=== PATIENT | male | born 1945 | race Caucasian/White ===

== ENCOUNTER 2018-09-11 00:28 | Emergency (ER) | payer MEDICARE, BC, SELFPAY ==
--- NOTE | 2018-09-11 00:38 | NUR.NOTE ---
Nursing Note: pt had mohs today pt left from [facility] at 1700 with minimal bleeding over the course of the evening bleeding increased
[2018-09-11 00:39] VITALS: BP 169/83; PULSE 83; RESP 17; TEMP 36.8; O2SAT 98
--- NOTE | 2018-09-11 00:51 | W.ED.GENAD ---
Discharge Plan Disposition Patient Disposition: [facility] Condition: Stable Discharge Details Chief Complaint: GenMedical Clinical Impression: Post-op bleeding Primary Care Provider: Art Caicedo ED Provider: Ayo Abarca Home Meds and New Rx's Prescriptions: No Action doxycycline hyclate 100 mg tablet 100 mg PO BID Qty: 20 RF: 0 aspirin [Aspir-Low] 81 MG tablet,delayed release (DR/EC) 81 mg PO DAILY RF: 0 lovastatin 40 MG tablet 40 mg PO DAILY Qty: 90 RF: 4 Discharge Instructions Additional Instructions: Please go directly to the [facility] emergency department. He will be seen and assessed there. The on-call senior javascript engineer has assured me that your case will be discussed with the plastic surgery team prior to arrival. Please continue to apply pressure to your nose and all times. Medical Decision Making This is a 73-year-old male with no significant past medical history who presents today for evaluation of bleeding. 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 Surgery was earlier today, however this afternoon he began bleeding once he came home, the bleeding has continued. Exam demonstrates bleeding coming from the attached vessel. We did contact the Derm on-call physician discussed the case with him, Dr. Andre. Waiting on dermatology's final plan at this point. Unfortunately, currently pressure does not relieve the patient's bleeding. 1:23 AM The case is again been discussed with , and at this time he recommends that the patient be sent to [facility] emergency department where he can be seen and assessed there by plastics. Currently the patient is hemodynamically stable, patient will be sent by private vehicle to [facility] ED for further assessment. No indication clinically at this time for emergent transfer via ambulance. Vital signs remain notably reassuring and stable. Current bleeding level is tolerable. The case was discussed with the [facility] emergency physician Dr. Whatley the patient's situation, and symptoms as well as the plan per dermatology has been discussed with them. I have extensively reviewed the treatment plan and discharge instructions with the patient and their family. I have addressed all patient concerns at this time. The patient and family was made aware of what symptoms to monitor for that would warrant a return to the emergency department. Discussed the plan with the patient and family, they demonstrate verbal understanding and agreement with our assessment and plan at this time. HPI General Date/Time Provider Initiated Documentation: 09/11/18 00:29. HPI Narrative: This is a 73-year-old male with past medical history of basal cell carcinoma on his nose, for which she just had a Mohs procedure earlier today with a graft from the forehead to the tip of his nose including a vascular vein that was also transitioned down from the forehead to the nose with a tissue bridge in between. Surgery was completed earlier this afternoon. 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 He does take aspirin, but aside for this he denies any other blood thinners. He denies any significant pain, numbness, tingling, headache, or vision changes. Bleeding has been continuous. Patient has no other complaints at this time Related Data Home Medications Medication Instructions Recorded Confirmed aspirin [Aspir-Low] 81 mg PO DAILY tab-cap 09/09/13 09/11/18 lovastatin 40 mg PO DAILY #90 tab-cap 09/16/17 09/11/18 doxycycline hyclate 100 mg tablet 100 mg PO BID #20 tab 08/04/18 09/11/18 Previous Rx's Medication Instructions Recorded lovastatin 40 mg PO DAILY #90 tab-cap 09/16/17 doxycycline hyclate 100 mg tablet 100 mg PO BID #20 tab 08/04/18 Allergies Allergy/AdvReac Type Severity Reaction Status Date / Time No Known Allergies Allergy Unverified 09/11/18 00:43 General Stated Complaint: GenMedical VAUGHN: 3 Review of Systems Review of Systems All systems reviewed & are unremarkable except as noted in HPI and below PFSH Family History Mother No problems noted. Father No problems noted. Sister No problems noted. Brother No problems noted. Grandfather No problems noted. Grandfather Heart disease Grandmother No problems noted. Grandmother No problems noted. Sister No problems noted. Brother No problems noted. Brother No problems noted. Brother No problems noted. Brother No problems noted. Son No problems noted. Daughter No problems noted. Daughter No problems noted. Social History Smoking/Tobacco Use Status: Former Tobacco Use Alcohol Intake: never Drug use: Never Substance use type: does not use Do you feel safe at home: Yes Do you feel safe in your relationship?: Yes Exam Narrative Exam Narrative: 1.Const: Well-nourished, Well-developed, appearing stated age 2.Eyes: PERRL, no conjunctival injection, and symmetrical lids. 3.ENT: Nose demonstrates a well suture graft to the anterior aspect of the nose, does appear slightly pale, but not notably inconsistent from the other skin. Proximal to this is a grafted vessel, however due to adhesions and suturing I am unable to completely visualize. The bleeding seems to be coming from this area. No significant pain. Bleeding is certainly more than a mild ooze, but is not a vadim hemorrhage. Consistent mild drip is present. No evidence of vadim hemorrhage. 4.CVS: +S1/S2, No murmurs or gallops. Peripheral pulses 2+ and equal in all extremities. Brisk capillary refill in all extremities. 5.RESP: Unlabored respiratory effort. Clear to auscultation bilaterally. No wheezes rales or rhonchi 6.GI: Soft, Nontender/Nondistended, No hepatosplenomegaly. No guarding or rebound. 7.MSK: Normocephalic/Atraumatic, Extremities w/o deformity or ttp No cyanosis or clubbing, Normal movement of all extremities 8.Skin: Warm, Dry. No rashes or lesions. 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 Sensation grossly intact, no focal neurologic deficits. 10.Psych: (AAO) x3. Appropriate mood and affect Course Vital Signs Temperature 36.8 C 09/11/18 00:39 Pulse 83 09/11/18 00:39 Respiratory Rate 17 09/11/18 00:39 Blood Pressure 169/83 H 09/11/18 00:39 Pulse Oximetry 98 09/11/18 00:39 Temperature 36.8 C 09/11/18 00:39 Temperature Source Skin 09/11/18 00:39 Pulse 83 09/11/18 00:39 Respiratory Rate 17 09/11/18 00:39 Respiratory Effort 09/11/18 00:50 Blood Pressure 169/83 H 09/11/18 00:39 Blood Pressure Position Sitting 09/11/18 00:39 Pulse Oximetry 98 09/11/18 00:39 Oxygen Delivery Method Room Air 09/11/18 00:39 Oxygen Flow Rate 0 09/11/18 00:39 Pain Level 3 09/11/18 00:39
--- NOTE | 2018-09-11 00:51 | NUR.NOTE ---
Nursing Note: moderate bleeding. pt is able to stop bleeding by placing gauze on nose and holding. states plan to drive to [facility]
== END 2018-09-11 01:28 | disposition short-term general hospital (02) ==
PROVIDERS: Emergency Provider Student in an Organized Health Care Education/Training Program; PCP Family Medicine
DX: L76.21 Postprocedural hemorrhage of skin and subcutaneous tissue following a dermatologic procedure (principal); Z98.890 Other specified postprocedural states; Z79.82 Long term (current) use of aspirin
CPT/HCPCS: 99285; 99284

== ENCOUNTER 2020-11-01 04:02 | Outpatient (CLI) | payer MEDICARE, BC, SELFPAY ==
[2020-11-01 13:01] LABS: Calculated LDL 57 mg/dL (<100); Cholesterol 128 mg/dL (<200); HDL Cholesterol 33 mg/dL (40-60); Triglyceride 190 mg/dL (<150)
== END 2020-11-01 04:03 | disposition home or self-care (01) ==
LOC: LOS 04:03
PROVIDERS: PCP Emergency Medicine; Visit Provider Nurse Practitioner Family
DX: E78.5 Hyperlipidemia, unspecified (principal)
CPT/HCPCS: 36415; 80061

== ENCOUNTER 2020-11-08 14:03 | Outpatient (REF) | payer MEDICARE, BC, SELFPAY ==
--- NOTE | 2020-11-08 13:20 | SKI_PTH ---
PATIENT: Jose Harkins LOC: [facility] U#:[id number] AGE/SX: 75/M ROOM: RE11/08/[address]: Saleem Santos MD : 1945 BED: DIS: 11/08/2020 SPEC #: [id number] RECD: 11/08/20 18:00 STATUS: QUINCY REQ #: [id number] HARPER: 11/08/20 13:[address]: Saleem Santos DEPT: Surgical Specimen RECD BY: Vivi Mendes Tissues: 1 - SKIN BIOPSY(SHAVE/PUNCH) Procedures: SKIN LEVEL 4 Comments: [id number]
== END 2020-11-08 14:04 | disposition home or self-care (01) ==
LOC: LBN 14:03
PROVIDERS: PCP Family Medicine; Visit Provider Family Medicine
DX: L82.1 Other seborrheic keratosis (principal)
CPT/HCPCS: 88305

== ENCOUNTER → 2021-08-13 01:27 | Outpatient (CLI) | payer MEDICARE, SELFPAY ==
--- NOTE | 2021-08-13 07:00 | DI.NM_ITS ---
APPROVED REPORT Exam: Exercise Treadmill Patient Location: Out-Patient Room/Bed: Stress Nurse: Georgina Menchaca RN Ordering Provider:LANCE MOYA, Contact Number: [phone] BMI: 28.47 Baseline Rhythm: Sinus Bradycardia, RBBB Comment: PACs, PAC couplets Indications: Intermittent Chest Pain Medical History Medical History: HLD, GERD, Chest pain Cardiac Medications: Lovastatin, Omeprazole Allergies: No known drug allergies Cardiac Risk Factors: Hyperlipidemia, FHX of CAD Previous Cardiac Procedures: None Pretest Chest Pain Characteristics: No chest pain Exercise History: Physically active Physical Disabilities: None Lung Sounds: Clear to auscultation, Clear to auscultation Heart Sounds: Regular Stress Test Details Test: Exercise stress testing was performed using a Sandro protocol. Nuclear Acquisition: Rest Tc-99m/Stress Tc-99m 1 day Rest Isotope: Tc-99m Sestamibi. Dose: 11.0 Date: 08/13/2021 Injection Time: 0915 Stress Isotope: Tc-99m Sestamibi. Dose: 36.5 Date: 08/13/2021 Injection Time: 1102 HR Resting HR Supine: 59 bpm Max Heart Rate (APMHR): 143.685095 bpm Resting HR Standin bpm Target HR (85% APMHR): 121.848069 bpm Max HR Achieved: 164 bpm % of APMHR: 114.69 Recovery HR: 86 bpm HR response to stress: Normal HR response to stress BP Resting BP Supine: 122/78 mmHg Resting BP Standin/76 mmHg Max BP: 180/82 mmHg Recovery BP: 142/70 mmHg BP response to stress: Normal blood pressure response to stress. ECG Resting ECG: Sinus Bradycardia, RBBB Ectopy: frequent PACs, PAC couplets Stress ECG: Sinus Tachycardia ST Change: Horizontal ST depression Lead(s): anterior leads Stage: [address] Deviation: 1 mm Arrhythmia: frequent PACs, PAC couplets, PSVT bursts Recovery ECG: Sinus Rhythm Recovery ST Change: Horizontal ST depression Lead(s): anterior leads Recovery ST Deviation: 1 mm Recovery Arrhythmia: PVCs, PACs, 20 second run of PSVT Clinical Reason for Termination: Patient's shoelace came untied, treadmill stopped d/t safety concerns Stress Symptoms: General Fatigue Exercise duration: 7 min27 sec Highest Stage Reached: Stage 3: 3.4 mph at 14% grade. Exercise capacity: 9.29 METs Rate Pressure Product: [id number] Stress ECG Conclusion 1. The patient exercised for 7 minutes (9 minutes). Exercise was stopped due to fatigue and safety c oncerns on the treadmill. 2. The patient developed [address] depressions in the inferior leads. Stress Test Summary STAGE Time (mins) Speed (mph) Grade (%) HR BP SYMPTOMS METS Supine 59 122/78 Standing 65 124/76 1 3 1.7 10 92 146/80 4.6 2 6 2.5 12 120 160/82 7 1 min recovery 118 180/82 3 min recovery 74 158/68 6 min recovery 86 142/70 MPI Conclusion Patient's LV augmented appropriately (69%) There is a small fully reversible perfusion defect of the lateral wall which could represent motion a rtifact. However, given the abnormal ECG this most likely represents an abnormal perfusion study. Radiologist Interpretation Radiologist Interpretation by: Darshan Ferguson MD Interpretation Date/Time: 08/13/2021 16:44:10
== END ==
PROVIDERS: PCP Family Medicine; Visit Provider Family Medicine
DX: R07.9 Chest pain, unspecified (principal)
CPT/HCPCS: 78452; 93016; 93018; 93017

== ENCOUNTER → 2021-08-17 10:15 | Outpatient (BNVA) | payer MEDICARE, SELFPAY | PROVIDERS: PCP Family Medicine; Referring Provider Family Medicine; Visit Provider Physical Therapy Assistant | DX: Z83.79 Family history of other diseases of the digestive system (principal); K21.9 Gastro-esophageal reflux disease without esophagitis | CPT/HCPCS: 99213 ==

== ENCOUNTER 2021-10-15 12:43 | Outpatient (CLI) | payer MEDICARE, SELFPAY ==
--- NOTE | 2021-10-15 12:30 | RT.EKG_ITS ---
APPROVED REPORT Exam: Resting ECG Reason for Exam: NPW baseline needed Patient Location: O HR:66 bpm ECG Measurements Heart Rate 66 AXIS GA 211 P -38 QRSd 129 QRS -72 QT 387 T 4 QTc 406 Conclusion Sinus rhythm...normal P axis, V-rate 50- 99 RBBB and LAFB...QRSd >120mS, axis(-40,240)
== END 2021-10-15 12:44 | disposition home or self-care (01) ==
LOC: DI.CARD 12:44
PROVIDERS: PCP Family Medicine; Visit Provider Internal Medicine Cardiovascular Disease
DX: R07.9 Chest pain, unspecified (principal); R94.31 Abnormal electrocardiogram [ECG] [EKG]
CPT/HCPCS: 93010

== ENCOUNTER → 2021-10-15 12:44 | Outpatient (BNVA) | payer MEDICARE, SELFPAY | PROVIDERS: PCP Family Medicine; Referring Provider Family Medicine; Visit Provider Internal Medicine Cardiovascular Disease | DX: I44.4 Left anterior fascicular block (principal); I45.10 Unspecified right bundle-branch block; R07.9 Chest pain, unspecified; E78.5 Hyperlipidemia, unspecified | CPT/HCPCS: 93005; 99203; 99214 ==

== ENCOUNTER 2022-07-17 08:27 | Outpatient (CLI) | payer MEDICARE, SELFPAY ==
[2022-07-17 12:46] LABS: Calculated LDL 45 mg/dL (<100); Cholesterol 118 mg/dL (<200); Glucose 110 mg/dL (74-106); HDL Cholesterol 36 mg/dL (40-60); Triglyceride 185 mg/dL (<150)
== END 2022-07-17 08:28 | disposition home or self-care (01) ==
LOC: LOS 08:27
PROVIDERS: PCP Family Medicine; Visit Provider Family Medicine
DX: E78.5 Hyperlipidemia, unspecified (principal); R73.9 Hyperglycemia, unspecified
CPT/HCPCS: 36415; 80061; 82947

== ENCOUNTER → 2022-08-12 10:48 | Outpatient (BNVA) | payer MEDICARE, SELFPAY | PROVIDERS: PCP Family Medicine; Referring Provider Family Medicine; Visit Provider Internal Medicine Cardiovascular Disease | DX: E78.5 Hyperlipidemia, unspecified (principal); R94.39 Abnormal result of other cardiovascular function study | CPT/HCPCS: 99214 ==

== ENCOUNTER 2023-08-11 08:41 | Outpatient (CLI) | payer MEDICARE, SELFPAY ==
--- NOTE | 2023-08-11 08:30 | RT.EKG_ITS ---
APPROVED REPORT Exam: Resting ECG Reason for Exam: chest pain Patient Location: O HR:62 bpm ECG Measurements Heart Rate 62 AXIS NC 205 P -52 QRSd 141 QRS -75 QT 404 T 25 QTc 411 Conclusion Sinus l rhythm...P axis (-45,135) RBBB and LAFB...QRSd >120mS, axis(-40,240)
== END 2023-08-11 08:42 | disposition home or self-care (01) ==
LOC: DI.CARD 08:41
PROVIDERS: PCP Family Medicine; Visit Provider Internal Medicine Cardiovascular Disease
DX: R07.9 Chest pain, unspecified (principal)
CPT/HCPCS: 93010

== ENCOUNTER → 2023-08-11 10:32 | Outpatient (BNVA) | payer MEDICARE, SELFPAY | PROVIDERS: PCP Family Medicine; Referring Provider Family Medicine; Visit Provider Internal Medicine Cardiovascular Disease | DX: I45.2 Bifascicular block (principal); I44.4 Left anterior fascicular block; E78.5 Hyperlipidemia, unspecified | CPT/HCPCS: 93005; 99213 ==

== ENCOUNTER 2023-09-02 14:08 | Outpatient (CLI) | payer MEDICARE, SELFPAY ==
[2023-09-02 17:03] LABS: Calcium 10.5 mg/dL (8.5-10.1)
[2023-09-03 19:16] LABS: Parathyroid Hormone,Intact 192 pg/mL (19-88)
== END 2023-09-02 14:09 | disposition home or self-care (01) ==
LOC: LBO 09-10 14:08
PROVIDERS: PCP Family Medicine; Visit Provider Family Medicine
DX: E83.52 Hypercalcemia (principal)
CPT/HCPCS: 36415; 82310; 83970